=== PATIENT | female | born 1940 | race Caucasian/White ===

== ENCOUNTER → 2017-01-07 | Outpatient (CLI) | payer MEDICARE, MEDICAID ==
[~2017-01-07] MED LIST: AMLODIPINE10 MG PO; ATENOLOL100 MG PO; CEFDINIR300 M1 PO; CEFTIN500 MG PO; CENESTIN0.625 MG PO; CHLORDIAZEPOXID PO; CHLORDIAZEPOXID1 CAP PO; CLEOCIN HCL300 MG PO; CYMBALTA60 MG PO; DARVOCET-N6 EACH/PAK PO; DESOXIMETASONE0.25% EX; DYRENIUM50 MG PO; EC NAPROSYN500 MG PO; ESTRADIOL0.5 MG PO; FLAGYL 500MG.500 MG PO; HYOSCYAMINE0.125 M1 PO; LORATADINE 10MG10 M1 PO; MAXZIDE 25 MG-31 TAB PO; MEDROL 4MG. DOSE4 MG PO; MICRO-K 10 MEQ10 MEQ PO; NEXIUM40 MG PO; PHENERGAN 25MG.25 M1 PO; POTASSIUM CHLO10 ME3 PO; PREVACID 30MG C30 M1 PO; PRISTIQ50 MG PO; TRAMADOL 50MG T50 M1 PO; ZANTAC 150150 MG PO
--- NOTE | 2017-01-07 11:33 | RADIOLOGY REPORT PS360 ---
. DIG MAMM-SCREEN IZZY W/CAD ORDERING PHYSICIAN : Natasha Newell MD PATIENT AGE: 76 years GENDER: Female COMPARISON: September 2010, March 2013, May 2014, December 2015 HISTORY:Taking estradiol. No new complaints. Noncontributory family history TECHNIQUE: Std CC & MLO images were obtained. R2 CAD reviewed. FINDINGS: Moderate glandular elements throughout both breast. Moderate breast density RIGHT BREAST:*Small 6.5 mm round Nodular area of density at the right breast is has become apparent apparent and appears slightly denser, but likely stable but obscured on year years study. Suspect small cyst or benign feature, but would recommend ultrasound to further evaluate, particularly with this patient on estradiol. LEFT BREAST:. No significant new findings. Stable appearance. Follow-up one year recommended ---IMPRESSION: 1. Right breast: Suggest ultrasound right breast Small 6.5 mm nodular density central breast slightly evident today.-Suspect likely benign cyst or benign possibly stable feature but more evident today projections,. Suggest ultrasound to further evaluate. (If no corresponding cyst identified on ultrasound, subsequent spot views would be warranted as well.) 2. Left breast stable. Follow-up in one year on left. BI-RADS CATEGORY: 0 RECOMMENDED FOLLOWUP: USB ULTRASOUND-BREAST RIGHT (A letter has been sent to the patient regarding results of the study.)
== END ==
LOC: RAD 09:30
DX: Z12.31 Encounter for screening mammogram for malignant neoplasm of breast (principal)
CPT/HCPCS: G0202

== ENCOUNTER → 2017-01-23 | Outpatient (CLI) | payer MEDICARE, MEDICAID ==
--- NOTE | 2017-01-27 14:10 | RADIOLOGY REPORT PS360 ---
US BREAST-RT COMPLETE W/AXILLA CAD Screening ORDERING PHYSICIAN : Natasha Newell MD PATIENT AGE: 76 years GENDER: Female COMPARISON: Previous mammograms: January 07 2017 and December 2015 INDICATION: Further evaluate new nodule right breast TECHNIQUE: Ultrasound survey as entire breast including the axillary region. --- RIGHT BREAS: ULTRASOUND INCLUDING Axillary survey: . Ultrasound performed to evaluate the nodular density Central breast seen on recent mammogram. Benign appearing cyst at the central breast measuring up to 6.5 mm on my measurements here central breast behind nipple. This would likely corresponds with the density seen on recent mammogram. There is also a second cyst towards 6 o'clock position is measures up to 5.3 mm benign appearance and can be followed..: IMPRESSION: 2 small cyst at the right breast. The more central seems to correspond with the density seen on recent mammogram. Patient may resume annual scheduled. These would correspond BI-RADS CATEGORY: 2_Benign RECOMMENDED FOLLOWUP: 12M 12 MONTH FOLLOW-UP (A letter has been sent to the patient regarding results of the study.)
== END ==
LOC: RAD 13:04
DX: R92.8 Other abnormal and inconclusive findings on diagnostic imaging of breast (principal)